=== PATIENT | female | born 1975 | race African-American/Black ===

== ENCOUNTER 2018-11-30 20:39 | Emergency (ER) | payer SELFPAY ==
[~2018-11-30] VITALS: Ht 172.7 cm; Wt 88.0 kg
[2018-11-30] MEDS ORDERED: ALBUTEROL (0.083%) 2.5MG/3ML NEB HHN ONE (23:15)
[2018-12-01] MEDS ORDERED: LORAZEPAM 1MG TABLET PO ONE (01:30)
[2018-12-01 02:37] VITALS: BP 124/89
== END 2018-12-01 02:38 | disposition home or self-care (01) ==
LOC: ER 21:04
DX: J98.01 Acute bronchospasm (principal); F41.9 Anxiety disorder, unspecified; F12.90 Cannabis use, unspecified, uncomplicated
CPT/HCPCS: 71045; 93005; 94640; 99283; J7611

== ENCOUNTER 2021-05-26 12:48 | Emergency (ER) | payer MEDICAID ==
[~2021-05-26] VITALS: Ht 172.7 cm; Wt 90.0 kg
[2021-05-26 13:04] VITALS: BP 105/67
[2021-05-26] MEDS ORDERED: HYDROCODONE/ACETAMINOPHEN 5/325MG TABLET PO STA (15:07)
[2021-05-26] MEDS ORDERED: IBUP-2029 PO (16:48)
== END 2021-05-26 17:12 | disposition home or self-care (01) ==
LOC: ER 12:48
DX: S20.219A Contusion of unspecified front wall of thorax, initial encounter (principal); S40.022A Contusion of left upper arm, initial encounter; V43.52XA Car driver injured in collision with other type car in traffic accident, initial encounter; Y93.89 Activity, other specified; Y92.89 Other specified places as the place of occurrence of the external cause; Y99.8 Other external cause status
CPT/HCPCS: 71045; 73030; 73060; 81025; 99284; A4565